=== PATIENT | male | born 1990 | race Caucasian/White ===

== ENCOUNTER 2020-05-29 07:38 | Emergency (ER) | payer OTHER ==
[2020-05-29] MEDS ORDERED: Norflex 60 MG/2 ML IM ONE (07:59)
[2020-05-29] MEDS ORDERED: TORAdol 30 mg Injection IM ONE (07:59)
--- NOTE | 2020-05-29 08:05 | ERPHSYRPT ---
- History of Present Illness Time Seen by Provider: 05/29/20 07:53 Source: patient Exam Limitations: no limitations Patient Subjective Stated Complaint: R lower back pain Triage Nursing Assessment: pt to ED c/o R lower back/flank pain onset yesterday afternoon while working on a car. pt states he may have positioned himself wrong and caused pain. reports sharp pain with position changes. denies urinary issues now. rates 10 radiating around to side. Physician History: 29 years old male presented in ER with chief complaint of right lower back pain since yesterday after he was working on a car and position himself in a way that it caused some twisting while lifting stuff up. Since then he is having gradually worsening moderate intensity sharp pain in the right low back, aggravated with activity and partially relieved with taking Tylenol and resting. Denies any radiation. No loss of bowel or bladder control. No numbness tingling or weakness of lower extremities. Denies any midline pain. Timing/Duration: yesterday Method of Injury: lifting, twisted, turning Quality: sharp, throbbing Back Pain Location: paraspinous muscles Severity of Pain-Max: moderate Severity of Pain-Current: moderate Modifying Factors: Improves With: immobilization, pain medication. Worsens With: movement Associated Symptoms: lower back pain, muscle spasms, No urinary incontinence, No loss of bowel control, No numbness in legs/feet, No weakness Allergies/Adverse Reactions: No Known Drug Allergies Allergy (Unverified 05/29/20 07:51) Hx Tetanus, Diphtheria Vaccination/Date Given: No Hx Influenza Vaccination/Date Given: No Immunizations Up to Date: No Travel Risk - International Travel Have you traveled outside of the country in past 3 weeks: No - Coronavirus Screening Are you exhibiting any of the following symptoms?: No Close contact with a COVID-19 positive Pt in past 14-21 Days: No - Review of Systems Constitutional: No Symptoms Eyes: No Symptoms Ears, Nose, & Throat: No Symptoms Respiratory: No Symptoms Cardiac: No Symptoms Abdominal/Gastrointestinal: No Symptoms Genitourinary Symptoms: No Symptoms Musculoskeletal: Back Pain Skin: No Symptoms Neurological: No Symptoms Psychological: No Symptoms Endocrine: No Symptoms Hematologic/Lymphatic: No Symptoms Immunological/Allergic: No Symptoms - Past Medical History Pertinent Past Medical History: No - Past Surgical History Past Surgical History: No - Social History Smoking Status: Never smoker Exposure to second hand smoke: No Drug Use: none Patient Lives Alone: Yes - Nursing Vital Signs Nursing Vital Signs: Initial Vital Signs Temperature 97.8 F 05/29/20 07:42 Pulse Rate 83 05/29/20 07:42 Respiratory Rate 18 05/29/20 07:42 Blood Pressure 148/95 05/29/20 07:42 O2 Sat by Pulse Oximetry 98 05/29/20 07:42 Pain Scale Pain Intensity [Right Lower 7 Back] Pain Intensity 7 - Physical Exam General Appearance: no apparent distress Eye Exam: PERRL/EOMI, eyes nml inspection Ears, Nose, Throat Exam: normal ENT inspection, pharynx normal Neck Exam: normal inspection, non-tender, supple, full range of motion Respiratory Exam: normal breath sounds, lungs clear Cardiovascular Exam: regular rate/rhythm, normal heart sounds Gastrointestinal Exam: soft, normal bowel sounds, No tenderness Back Exam: normal inspection, normal range of motion, muscle spasm (Right sacroiliac area), No CVA tenderness, No vertebral tenderness, No point tenderness Extremity Exam: normal inspection, normal range of motion, pelvis stable Neurologic Exam: alert, oriented x 3, cooperative, no bake molder II-XII nml as tested, nml cerebellar function, sensation nml, motor deficits Skin Exam: normal color, warm SpO2 Interpretation: normal SpO2: 98 O2 Delivery: Room Air Ordered Tests: Medication Summary Discontinued Medications Generic Name Dose Route Start Last Admin Trade Name Freq PRN Reason Stop Dose Admin Ketorolac Tromethamine 30 mg 05/29/20 07:59 Toradol 30 Mg Injection IM 05/29/20 08:00 STAT ONE Orphenadrine Citrate 60 mg 05/29/20 07:59 Norflex 60 Mg/2 Ml IM 05/29/20 08:00 STAT ONE - Progress Progress: improved Progress Note: 29 years old is evaluated for low back pain after working on a car. Patient does not have any midline tenderness. Minimal difficulty ambulation while in the ER. No weakness in lower extremities. No loss of bowel or bladder control. Do not think has cauda equina syndrome. Seems more of a muscle spasm/strain. Given Toradol and Norflex, on reevaluation feeling better. We will continue with NSAID and Robaxin to go home. Discussed signs symptoms of worsening needing return to ER which he seemed understanding. Counseled pt/family regarding: diagnosis, need for follow-up - Departure Departure Disposition: Home Clinical Impression: Low back strain Qualifiers: Encounter type: initial encounter Qualified Code(s): S39.012A - Strain of muscle, fascia and tendon of lower back, initial encounter Condition: Stable Critical Care Time: No Referrals: JUDE COHN [ACTIVE STAFF] - (2 days for reevaluation) Instructions: Low Back Pain (DC) Additional Instructions: Take Tylenol/ibuprofen as needed. Avoid exertional activities. Follow-up with primary care physician for reevaluation. Return to ER for worsening pain or if develop numbness tingling weakness of lower extremity/loss of bowel or bladder control. Prescriptions: Ibuprofen 600 mg PO Q6HPRN PRN 10 Days #20 tablet PRN Reason: Pain Methocarbamol [Robaxin-750] 750 mg PO TID #21 tablet
[2020-05-29] MEDS ORDERED: Norflex 60 MG/2 ML ONE (08:06)
[2020-05-29] MEDS ORDERED: TORAdol 30 mg Injection ONE (08:06)
[2020-05-29 08:44] VITALS: BP 138/91; PULSE 97; O2SAT 97
== END 2020-05-29 08:43 | disposition home or self-care (01) ==
LOC: ED 07:38
DX: S39.012A Strain of muscle, fascia and tendon of lower back, initial encounter (principal); M54.5 Low back pain
CPT/HCPCS: 96372; 99284; J1885; J2360